=== PATIENT | female | born 1960 | race Caucasian/White ===

== ENCOUNTER 2019-03-29 15:03 | Emergency (ER) | payer OTHER ==
--- OUTSIDE RECORDS SUMMARY | 2019-03-29 15:13 | XMS REPORT | Summary of Care ---
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 Flatulence, eructation and gas pain RM [id number] [address] [facility] Room 0222 [id number] [place], [place] [phone] Allergies Active Allergy Reactions Severity Noted Date Comments Environmental 12/06/2017 documented as of this encounter (statuses as of 02/22/2019) Medications Medication Sig Dispensed Refills Start Date End Date Status polyethylene glycol Take 17 g by 0 09/01/2017 Active (MIRALAX) powder mouth daily as needed fluvoxamine (LUVOX) Take 200 mg by 0 Active 100 MG tablet mouth every morning before breakfast zolpidem (AMBIEN) 5 Take 5 mg by 0 Active MG tablet mouth nightly as needed zolpidem (AMBIEN) 10 Take 10 mg by 0 05/12/2018 Active MG tablet mouth nightly as needed Max dose of 5 tablets weekly. pantoprazole Take 1 tablet by 30 tablet 11 07/25/2018 07/24/2019 Active (PROTONIX) 40 MG mouth daily tablet Additional information Patient not taking. Reported on 02/09/2019 11:22 AM ondansetron (ZOFRAN ODT) 4 MG Take 1 tablet by mouth 10 tablet 0 2018 Active disintegrating tablet every 8 (eight) hours as needed for Nausea Additional information Patient not taking. Reported on 02/09/2019 11:22 AM omeprazole (PRILOSEC) Take 1 capsule by 30 capsule 11 07/25/20182019 Active 20 MG capsule mouth daily Additional information Patient not taking. Reported on 02/09/2019 11:22 AM naproxen (NAPROSYN) 500 MG tablet Take 550 mg by mouth every 6 (six) 0 Active hours as needed documented as of this encounter (statuses as of 02/22/2019) Active Problems Problem Noted Date Loculated pleural effusion 07/27/2018 Gastroparesis 09/29/2017 Constipation 09/01/2017 Abdominal pain 09/01/2017 Flatulence, eructation and gas pain 09/01/2017 PONV (postoperative nausea and vomiting) 09/01/2017 Anxiety OCD (obsessive compulsive disorder) PUD (peptic ulcer disease) Obesity Insomnia documented as of this encounter (statuses as of 02/22/2019) Resolved Problems Problem Noted Date Resolved Date Paraesophageal hernia 07/21/2018 08/23/2018 Hiatal hernia 05/19/2018 08/23/2018 Overview: Added automatically from request for surgery [id number] Hiatal hernia with GERD 12/25/2017 08/23/2018 Diaphragmatic hernia 09/29/2017 08/23/2018 documented as of this encounter (statuses as of 02/22/2019) Social History Tobacco Use Types Packs/Day Years Used Date Never Smoker Smokeless Tobacco: Never Used Alcohol Use Drinks/Week oz/Week Comments No Sex Assigned at Date Recorded Not on file Job Start Date Occupation Industry Not on file Not on file Not on file Travel History Travel Start Travel End No recent travel history available. documented as of this encounter Last Filed Vital Signs Vital Sign Reading Time Taken Comments Blood Pressure 119/75 02/09/2019 11:20 AM EST Pulse 59 02/09/2019 11:20 AM EST Temperature 36.5 02/09/2019 11:20 AM EST C (97.7 F) Respiratory Rate 16 02/09/2019 11:20 AM EST Oxygen Saturation 94% 02/09/2019 11:20 AM EST Inhaled Oxygen Concentration - - Weight 66 kg (145 lb 6.4 oz) 02/09/2019 11:20 AM EST Height 157.5 cm (5' 2") 02/09/2019 11:20 AM EST Body Mass Index 26.59 02/09/2019 11:20 AM EST documented in this encounter Progress Notes Mer Pineda, TIFFANIE - 02/09/2019 1:00 PM EST Subjective: Patient ID: Martha Allred is a 58 y.o. female who presents in Surgical Specialties clinic todayfor 6 month post op follow up from Robotic assisted laparoscopic hiatal hernia repair with Carmela gastroplasty and Tanner Fundoplicaton perform on July 21, [address] Antonio Chavez. Aidee reports that she has been overall well. She does report there are a few foods, rice and pasta specifically, she consistently has difficulty with related to causing an indigestion/nausea type feeling but she states she is eating and swallowing well overall. She has had an intentional loss of 20# by decreasing intake and walking. Martha also c/o 2 areas of itching central and lower abdomen not along incision lines. She presents with her friend Lauren. ZOILA Thomas has a past medical history of Anemia, Anxiety, Mujica's esophagus, Constipation, Dysphagia, Gastroparesis, GERD (gastroesophageal reflux disease), Headache, Hiatal hernia, Hiatal hernia with GERD (12/25/2017), Insomnia, Obesity , OCD (obsessive compulsive disorder), Odynophagia, PONV (postoperative nausea and vomiting), and PUD (peptic ulcer disease) (2014). Martha has Constipation; Abdominal pain; Flatulence, eructation and gas pain; PONV (postoperative nausea and vomiting); Gastroparesis; Anxiety; OCD ( obsessive compulsive disorder); PUD (peptic ulcer disease); Obesity; Insomnia; and Loculated pleural effusion on their problem list. Martha has a past surgical history that includes Esophagogastroduodenoscopy; Colonoscopy (11/13/2013); section; Endometrial ablation; and Abdominal exploration surgery. Martha reports that she has never smoked. She has never used smokeless tobacco. She reports that she does not drink alcohol or use drugs. Martha has a current medication list which includes the following prescription( s): fluvoxamine, naproxen, polyethylene glycol, zolpidem, omeprazole, ondansetron, pantoprazole, and zolpidem. Martha is allergic to environmental. Review of Systems Constitutional: Negative for fever,chills, malaise/fatigue. Ears, nose, mouth, throat, and face: Denies nasal congestion, sore throat, or difficulty swallowing. Respiratory: Denies SOB cough, choking, chest tightness, wheezing and stridor. Cardiovascular: Denies chest pain and leg swelling. Gastrointestinal: Denies abdominal pain, nausea, vomiting and diarrhea. She does report occasionalconstipation, moving bowels every 3-5 days and usage of miralax in the past. Integument: 2 areas of itching per HPI. Negative for open areas, incisional concerns, drainage or rash. Pain: Denies Musculoskeletal: Denies Neurological: Denies dizziness, syncope or numbness/tingling. Behavioral/Psych: Denies sleeplessness, or feelings of depression or lack of support. Objective: Vitals: 02/09/19 1120 BP: 119/75 Pulse: (!) 59 Resp: 16 Temp: 36.5 C (97.7 F) SpO2: 94% Physical Exam Constitutional: She is oriented to person, place, and time. She appears well- developed and well-nourished. No distress. Head: Normocephalic and atraumatic. Neck: No JVD present. No tracheal deviation present. Cardiovascular: Normal rate, regular rhythm, normal heart sounds and intact distal pulses. No murmurheard. Pulmonary/Chest: RR regular. Lungs CTA. Abdominal: Soft. Bowel sounds are normal. No distension, no tenderness. Incisions well healed without hernia. Musculoskeletal: Normal range of motion. Ambulates with ease. Neurological: She is alert and oriented to person, place, and time. Skin: Skin is warm and dry. No evidence of excoriation or rash. Incision sites well healed and intact. Psychiatric: normal mood and affect. IMAGING: Esophagram 02/09/19 IMPRESSION: 1. Patulous distal septal esophagus without evidence of obstruction. 2. Recurrent moderate hiatal hernia. The GE junction, fundoplication and proximal stomach are herniated above the diaphragm. I spent 30 minutes with the patient. More than 50% of the visit was spent reviewing the above mentioned imaging and counseling the patient about the assessment, healthy habits and reviewing reportable symptoms. Moderate hiatal hernia recurrence noted on esophogram. We discussed this at length during visit. She agrees no need for current intervention and is overall satisfied with ability to eat and her current lifestyle. Spent time answering questions to her satisfaction. Recommended f/u with PCP/ Gatroenterologist for Mujica's esophagus surveillance. She is agreeable with this plan. Assessment, imaging and plan reviewed and D/W Dr Antonio Chavez. Assessment: Martha Allred, 58 yo female, recovered well from Robotic assisted laparoscopic tanner fundoplication with Carmela Gastroplasty. She appears to have a mild recurrent hiatal hernia by esophagram. She does not have symptomatic difficulty with dysphagia or discomfort eating. Plan: Continue Mujica's esophagus surveillance with Gastroenterology per guidelines. Recommended TUMS, rolaids OTC for c/o indigestion/nausea . If ineffective may take Zantac or PepcicOTC. Recommended eating and increase hydration throughout day. Continue regular diet and RTC or call if concerns worsen or are not improved with above OTC's. documented in this encounter Plan of Treatment Health Maintenance Due Date Last Done Comments Pneumococcal Vaccine: 1968 Pediatrics (0 to 5 Years) and At-Risk Patients (6 to 64 Years) (1 of 1 - PPSV23) HIV Screening 08/06/1975 Cervical Cancer Screening 5 08/06/1983 years Breast Cancer Screening 2 2012 years Colon Cancer Screening 10 yrs 2012 DTaP,Tdap,and Td Vaccines (2 05/12/2018 04/14/2018 - Td) Influenza Vaccine 12/20/2018 Pneumococcal Vaccine: 65+ 08/06/2027 Years (1 of 2 - PCV13) MMR Vaccines Completed 09/05/2015, 08/01/2015 Hepatitis C Screening (B. Completed 07/23/2018, [id number]) 07/23/2018 Varicella Vaccines Aged Out 01/31/2019 No longer eligible based on patient's age to complete this topic HIB Vaccines Aged Out No longer eligible based on patient's age to complete this topic Hepatitis A Vaccines Aged Out No longer eligible based on patient's age to complete this topic Hepatitis B Vaccines Aged Out No longer eligible based on patient's age to complete this topic IPV Vaccines Aged Out No longer eligible based on patient's age to complete this topic documented as of this encounter Results Not on filedocumented in this encounter Visit Diagnoses Diagnosis Paraesophageal hernia - Primary Diaphragmatic hernia without mention of obstruction or gangrene Flatulence, eructation and gas pain Flatulence, eructation, and gas pain documented in this encounter
--- OUTSIDE RECORDS SUMMARY | 2019-03-29 15:13 | XMS REPORT | Continuity of Care Document ---
:1960 External Reference #:[id number] Author Name SHEREEN Meng Address [address] [address] Problems Description No Information Available Social History Type Date Description Comments Sex Unknown ETOH Use 03/21/2019 Denies alcohol use Tobacco Use Reviewed: 03/21/19 Patient has never smoked Smoking Status Reviewed: 03/21/19 Patient has never smoked Allergies, Adverse Reactions, Alerts Description No Known Drug Allergies Medications Active Medications SIG Qnty Indications Ordering Provider Date Diclofenac Sodium take 1 tablet by 60tabs SHEREEN Meng 03/21/2019 75mg mouth twice a Tablets DR day with food. Zolpidem Tartrate Unknown 5mg Tablets Fluvoxamine Maleate Unknown 100mg Tablets Immunizations Description No Information Available Vital Signs Date Vital Result Comment 03/21/2019 1:49pm Pain Level 3 Results Description No Information Available Procedures Description No Information Available Medical Devices Description No Information Available Encounters Description No Information Available Assessments Date Code Description Provider 03/21/2019 M76.32 Iliotibial band syndrome, left leg SHEREEN Meng 03/21/2019 M17.12 Unilateral primary osteoarthritis, left knee SHEREEN Meng Plan of Treatment Future Appointment(s):04/07/2019 1:00 pm - SHEREEN Meng at [facility] Main Oncqxx5503/21/2019 - CHAPITO Meng76.32 Iliotibial band syndrome , left legM17.12 Unilateral primary osteoarthritis, left kneeComments:We discussed treatment options at length. Patient clearly understands. I am going to place her on diclofenac 75 mg 1 twice daily with food. She will avoid all other anti-inflammatories. I will see her in 2-3 weeks. Functional Status Description No Information Available Mental Status Description No Information Available Referrals Description No Information Available
--- OUTSIDE RECORDS SUMMARY | 2019-03-29 15:13 | XMS REPORT | Summary of Care ---
:1960 Author Organization [facility] Address [address] [place] [address] Care Team Providers Name Role Phone Daniel Prather Primary Care Provider Reason for Referral Diagnostic Radiology (Routine) Status Reason Specialty Diagnoses / Referred By Referred To Procedures Contact Contact Authorized Radiology Diagnoses History of repair of hiatal hernia Mer Pineda, Procedures FLUORO Esophagus Cine-Video IMPLEMENTATION ADVISOR [address] [facility] Room [address] [place] [address] Email: [email or web address] Encounter Details Date Type Department Care Team Description 02/09/2019 Hospital Encounter Diagnostic Radiology History of repair of hiatal hernia [address] [facility] [address] [place] [id number] Allergies Active Allergy Reactions Severity Noted Date Comments Environmental 12/06/2017 documented as of this encounter (statuses as of 02/10/2019) Medications Medication Sig Dispensed Refills Start Date [...] as of this encounter (statuses as of 02/10/2019) Active Problems Problem Noted Date Loculated pleural effusion 07/27/2018 Gastroparesis 09/29/2017 Constipation 09/01/2017 Abdominal pain 09/01/2017 Flatulence, eructation and gas pain 09/01/2017 PONV (postoperative nausea and vomiting) 09/01/2017 Anxiety OCD (obsessive compulsive disorder) PUD (peptic ulcer disease) Obesity Insomnia documented as of this encounter (statuses as of 02/10/2019) Resolved Problems Problem Noted Date Resolved Date Paraesophageal hernia 07/21/2018 08/23/2018 Hiatal hernia 05/19/2018 08/23/2018 Overview: Added automatically from request for surgery [id number] Hiatal hernia with GERD 12/25/2017 08/23/2018 Diaphragmatic hernia 09/29/2017 08/23/2018 documented as of this encounter (statuses as of 02/10/2019) Social History Tobacco Use Types Packs/Day Years Used Date Never Smoker Smokeless Tobacco: Never Used Alcohol Use Drinks/Week oz/Week Comments No Sex Assigned at Date Recorded Not on file Job Start Date Occupation Industry Not on file Not on file Not on file Travel History Travel Start Travel End No recent travel history available. documented as of this encounter Last Filed Vital Signs Not on filedocumented in this encounter Plan of Treatment Health [...] 08/01/2015 Hepatitis C Screening (B. Completed 07/23/2018, [id number]) 07/23/2018 Varicella Vaccines Aged Out 01/31/2019 No [...] this topic documented as of this encounter Procedures Procedure Name Priority Date/Time Associated Diagnosis Comments FLUORO ESOPHAGUS Routine 02/09/2019 10:56 AM History of repair of Results for this CINE-VIDEO 53454 EST hiatal hernia procedure are in the results section. documented in this encounter Results FLUORO Esophagus Cine-Video (02/09/2019 10:56 AM EST) Specimen Impressions Performed At IMPRESSION: [facility] 1. Patulous distal septal esophagus without evidence of obstruction. 2. Recurrent moderate hiatal hernia. The GE junction, fundoplication and proximal stomach are herniated above the diaphragm. Narrative Performed At [facility] INDICATION: 58-year-old female status post Jake fundoplication with paraesophageal hernia repair and Carmela gastropexy. Follow-up examination. TECHNIQUE: The patient was observed drinking thin barium under fluoroscopic observation in both the upright and recumbent positions. COMPARISON: Esophagram dated 07/23/2018. FINDINGS: The patient is status post Rohan fundoplication. The patient had no problem initiating the swallowing mechanism. Contrast flowed readily from esophagus into the stomach via a narrow channel through the gastroesophageal junction. There is rounded lucen cy surrounding the gastroesophageal junction consistent with postoperative change from prior fundoplication. The distal esophagus appears mildly patulous without obstruction. Normal peristalsis was seen throughout the esophagus. There is no evidence of aspiration. There is no evidence of strictures, filling defects, or outpouchings of the esophagus. The gastroesophageal junction, fundoplication and a segment of the proximal stomach was seen above the diaphragm, compatible with hiatal hernia recurrence. Procedure Note Interface, Received Via [facility] - 02/09/2019 5:04 PM EST INDICATION: 58-year-old female status post Jake fundoplication with paraesophageal hernia repair and Carmela gastropexy. Follow-up examination. TECHNIQUE: The patient was observed drinking thin barium under fluoroscopic observation in both the upright and recumbent positions. COMPARISON: Esophagram dated 07/23/2018. FINDINGS: The patient is status post Rohan fundoplication. The patient had no problem initiating the swallowing mechanism. Contrast flowed readily from esophagus into the stomach via a narrow channel through the gastroesophageal junction. There is rounded lucency surrounding the gastroesophageal junction consistent with postoperative change from prior fundoplication. The distal esophagus appears mildly patulous without obstruction. Normal peristalsis was seen throughout the esophagus. There is no evidence of aspiration. There is no evidence of strictures, filling defects, or outpouchings of the esophagus. The gastroesophageal junction, fundoplication and a segment of the proximal stomach was seen above the diaphragm, compatible with hiatal hernia recurrence. IMPRESSION: 1. Patulous distal septal esophagus without evidence of obstruction. 2. Recurrent moderate hiatal hernia. The GE junction, fundoplication and proximal stomach are herniated above the diaphragm. Performing Organization Address City/State/Zipcode Phone Number [facility] [address] [place] [address] documented in this encounter Visit Diagnoses Diagnosis History of repair of hiatal hernia documented in this encounter
[2019-03-29 15:39] VITALS: BP 106/61
--- NOTE | 2019-03-29 16:16 | UC ---
Knee Pain HPI - HPI Summary HPI Summary: Pt presents with c/o sudden onset of left knee pain that began 7 weeks ago. Denies recent or past injury. Pt reports that she was seen at [facility] walk in clinic ~ 8 days and diagnosed with IT Band syndrome. Pt was given diclofenac PO to take PRN and she reports pain has not improved and it's worsened. Pt states she had an xray at [facility] and was told to return in 2 weeks post visit if pain did not improve, and they would give her a shot in her knee. Pt states that pain is terrible and would like to follow up with a knee specialist. - History of Current Complaint Chief Complaint: UCLowerExtremity Stated Complaint: KNEE LEFT COMPLAINT Time Seen by Provider: 03/29/19 15:46 Hx Obtained From: Patient Hx Last Menstrual Period: 6 years ago ?: No Onset/Duration: Sudden Onset, Lasting Weeks, Still Present, Worse Since - onset Severity Initially: Mild Severity Currently: Severe Pain Intensity: 10 Character: Sharp, Aching, Throbbing, Stiffness Aggravating Factor(s): Stairs - walking down stairs. Alleviating Factor(s): Rest Associated Signs And Symptoms: Positive: Negative Able to Bear Weight: Yes - Risk Factors Septic Arthritis Risk Factor: Negative Gout Risk Factor: Age ^ 42 - Allergies/Home Medications Allergies/Adverse Reactions: Allergies Allergy/AdvReac Type Severity Reaction Status Date / Time environmental Allergy Eyes Uncoded 03/29/19 15:27 Itchy/Swollen/Red/Watery Home Medications: Home Medications Diclofenac Sodium 75 mg PO BID 03/29/19 [History Confirmed 03/29/19] Fluvoxamine Maleate [Fluvoxamine Maleate ER] 200 mg PO DAILY 03/29/19 [History Confirmed 03/29/19] Zolpidem TAB* [Ambien*] 5 mg PO DAILY 03/29/19 [History Confirmed 03/29/19] PMH/Surg Hx/FS Hx/Imm Hx Previously Healthy: Yes - Surgical History Surgical History: Yes Surgery Procedure, Year, and Place: 03/2012 uterine ablation, 12/2011 D and C, hiatal hernia repair, - Family History Known Family History: Positive: Cardiac Disease - Social History Occupation: Works From/At Home Lives: Alone Alcohol Use: None Substance Use Type: None Smoking Status (MU): Never Smoked Tobacco Have You Smoked in the Last Year: No Review of Systems All Other Systems Reviewed And Are Negative: Yes Constitutional: Positive: Negative Skin: Positive: Negative Eyes: Positive: Negative ENT: Positive: Negative Respiratory: Positive: Negative Cardiovascular: Positive: Negative Gastrointestinal: Positive: Negative Genitourinary: Positive: Negative Motor: Positive: Negative Neurovascular: Positive: Negative Musculoskeletal: Positive: Arthralgia - left knee Neurological: Positive: Negative Psychological: Positive: Negative Is Patient Immunocompromised?: No Physical Exam Triage Information Reviewed: Yes Appearance: Well-Appearing Vital Signs: Initial Vital Signs Temp 98.3 F 03/29/19 15:32 Pulse 67 03/29/19 15:32 Resp 18 03/29/19 15:32 BP 106/61 03/29/19 15:32 Pulse Ox 96 03/29/19 15:32 Vital Signs Reviewed: Yes Eye Exam: Normal ENT: Positive: Hearing grossly normal Dental Exam: Normal Neck exam: Normal Respiratory: Positive: No respiratory distress Cardiovascular Exam: Normal Musculoskeletal Exam: Normal Musculoskeletal: Positive: Strength Intact, ROM Intact, Other: - c/o Neurological Exam: Normal Psychological Exam: Normal Skin Exam: Normal Knee Pain Course/Dx - Course Course Of Treatment: I discussed with the patient the need for further testing and evaluation with an graphics specialist. Pt verbalized understanding and agreed to plan of care. Pt requested release of xray from [place] at time of visit. - Differential Dx/Diagnosis Differential Diagnosis/HQI/PQRI: Bursitis, Internal Derangement Of Knee Provider Diagnosis: Knee pain Discharge ED - Sign-Out/Discharge Documenting (check all that apply): Patient Departure All imaging exams completed and their final reports reviewed: No Studies - Discharge Plan Condition: Stable Disposition: HOME Prescriptions: predniSONE 20 mg TAB [Deltasone 20 MG TAB*] 20 mg PO DAILY #4 tab Patient Education Materials: Knee Pain (ED) Referrals: Azalia Martinez MD [Primary Care Provider] - If Needed Juju Bolivar MD [Medical Doctor] - As Soon As Possible - Billing Disposition and Condition Condition: STABLE Disposition: Home - Attestation Statements Provider Attestation: I was available for consult. This patient was seen by the JANICE. The patient was not presented to, seen by, or examined by me. -Jeanne
== END 2019-03-29 16:28 | disposition home or self-care (01) ==
LOC: UCCORT 15:03
DX: M25.562 Pain in left knee (principal); Z91.09 Other allergy status, other than to drugs and biological substances
CPT/HCPCS: 99212; G0463